=== PATIENT | female | born 1980 | race Caucasian/White ===

== ENCOUNTER 2018-11-17 08:47 | Emergency (ER) | payer OTHER ==
[2018-11-17 08:54] VITALS: BP 155/101; PULSE 108; TEMP 98; BMI 43.0
--- NOTE | 2018-11-17 09:39 | PDOC ---
History of Present Illness - General Chief Complaint: Pain, Acute Stated Complaint: ABDOMINAL PAIN Time Seen by Provider: 11/17/18 09:06 History Source: Patient Exam Limitations: No Limitations - History of Present Illness Initial Comments: 11/17/18 09:35 38 yr old woman with PCOS, IBS, presents with worsening lower abdominal pain for past 2 days, starting yesterday as lower back pain with this morning radiating down to her groin this morning, 10/10, worse with movement. She felt like she had to have a BM this morning and strained to have a nonbloody brown dry BM and gas which made the pain worse. denies vaginal discharge, vomiting, fevers, chills, cough. Past History - Past Medical History Allergies/Adverse Reactions: Allergies Allergy/AdvReac Type Severity Reaction Status Date / Time No Known Allergies Allergy Verified 11/17/18 08:54 Home Medications: Ambulatory Orders Icosapent Ethyl [Vascepa] 1 gm PO ASDIR 11/17/18 Metformin HCl [Glucophage] 1,000 mg PO BID 11/17/18 Naproxen [Naprosyn] 500 mg PO BID #6 tablet 11/17/18 COPD: No Other medical history: PCOS - Surgical History Cholecystectomy: Yes - Suicide/Smoking/Psychosocial Hx Smoking History: Unknown if ever smoked *Physical Exam - Vital Signs Last Vital Signs Temp Pulse Resp BP Pulse Ox 98 F 108 H 26 H 155/101 H 99 11/17/18 08:53 11/17/18 08:53 11/17/18 08:53 11/17/18 08:53 11/17/18 08:53 - Physical Exam General Appearance: Yes: Appropriately Dressed, Moderate Distress HEENT: positive: EOMI, TOMMIE, Pharynx Normal, Hearing Grossly Normal. negative: Pale Conjunctivae, Tonsillar Exudate, Rhinorrhea, Sinus Tenderness, Thrush Neck: positive: Trachea midline, Normal Thyroid, Supple. negative: Decreased range of motion, Lymphadenopathy (R), Lymphadenopathy (L) Respiratory/Chest: positive: Lungs Clear, Normal Breath Sounds. negative: Crackles, Rales, Wheezing Cardiovascular: positive: Regular Rhythm, Tachycardia. negative: Murmur Gastrointestinal/Abdominal: positive: Flat, Soft, Decreased BS, Tenderness ( diffusely tender, marked suprapubically, palpable uterus). negative: Distended , Guarding, Rebound Musculoskeletal: negative: CVA Tenderness Extremity: positive: Normal Inspection. negative: Pedal Edema, Swelling, Calf Tenderness, Erythema Integumentary: positive: Dry, Warm. negative: Petechiae, Rash, Swelling, Ecchymosis, Bruising Neurologic: positive: Alert Moderate Sedation - Procedure Monitoring Vital Signs: Procedure Monitoring Vital Signs Temperature 98 F 11/17/18 08:53 Pulse Rate 108 H 11/17/18 08:53 Respiratory Rate 26 H 11/17/18 08:53 Blood Pressure 155/101 H 11/17/18 08:53 O2 Sat by Pulse Oximetry (%) 99 11/17/18 08:53 ED Treatment Course - LABORATORY CBC & Chemistry Diagram: 11/17/18 09:50 11/17/18 09:50 Medical Decision Making - Medical Decision Making 11/17/18 09:37 38 yr old woman with lower abdominal pain. diffs include ruptured cyst, endometriosis, ectopic , ileus, nephrolithiasis, PID. 11/17/18 10:54 no leucocytosis, anemia, JADA, signs of UTI on u/a mild elevation in ALT, otherwise labs wnl. pending ultrasound results 11/17/18 11:31 pt resting in bed, morphine brought down to the pain to a tolerable level reviewed lab results with pt ectopic ruled out, less likely to be nephrolithiasis given on u/a or bmp findings likely ruptured cyst 11/17/18 13:10 hemorrhagic cyst seen on u/s, toradol given to pt, pt is resting comfortably. will dc pt with ibuprofen and outpatient f/u, and return instructions reviewed imaging and labs. copy of u/s reported provided. pt in agreement with plan to f/u as outpatient, stated understanding of return instructions. rx'd e-rx'd to preferred pharmacy *DC/Admit/Observation/Transfer Diagnosis at time of Disposition: Hemorrhagic cyst of left ovary - Discharge Dispostion Disposition: HOME Decision to Admit order: No - Prescriptions Prescriptions: Naproxen [Naprosyn] 500 mg PO BID #6 tablet - Referrals Referrals: Vamsi Jiménez MD [Staff Physician] - - Patient Instructions Printed Discharge Instructions: DI for Ovarian Cyst Additional Instructions: You were evaluated for pain today. A copy of your ultrasound has been provided for you. Please follow-up with your primary care physician an engine generator assembler for post- hospital evaluation. You can use heat, such as a warm water bottle, a heating pad set on low, or a warm bath, to relax tense muscles and relieve cramping you can also use NSAIDs, such as ibuprofen, help decrease swelling, pain, and fever. This medicine is available with or without a doctor's order. NSAIDs can cause stomach bleeding or kidney problems in certain people. Always read the medicine label and follow directions. Take it with food and drink plenty of water. Get emergency medical help if you have signs of an allergic reaction: sneezing, runny or stuffy nose; wheezing or trouble breathing; hives; swelling of your face, lips, tongue, or throat. Please seek immediate medical care if you have severe vaginal bleeding, dizziness or light-headed, or you feel like you may faint, develop new or worse pain in your belly or pelvis or any new symptoms. - Post Discharge Activity Forms/Work/School Notes: Back to Work
[2018-11-17] MEDS ORDERED: morphine CARPU-JECT 2 MG/1 ML DISP.SYRIN IVPUSH ONE (09:42)
[2018-11-17 10:03] LABS: BASO % 0.7 % (0-2.0); EOS % 1.6 % (0-4.5); HEMATOCRIT 37.3 % (32.4-45.2); HEMOGLOBIN 13.1 GM/dL (10.7-15.3); LYMPH % 27.5 % (8-40); MCH 29.8 pg (25.7-33.7); MEAN CELL VOLUME 85.1 fl (80-96); MEAN PLT VOLUME 7.7 fl (7.5-11.1); MONO % 4.8 % (3.8-10.2); NEUT % 65.4 % (42.8-82.8); PLATELET COUNT 267 K/MM3 (134-434); RBC 4.39 M/mm3 (3.60-5.2); RDW 13.8 % (11.6-15.6); WHITE BLOOD COUNT 7.2 K/mm3 (4.0-10.0)
[2018-11-17] MEDS ORDERED: MORPHINE SULFATE 2 MG/ML VIAL ONE (10:10)
[2018-11-17 10:11] LABS: URINE APPEARANCE SLCLOUDY; URINE BILIRUBIN NEGATIVE (<2.0 mg/dL); URINE COLOR YELLOW; URINE GLUCOSE (UA) NEGATIVE (NEGATIVE); URINE KETONE NEGATIVE (NEGATIVE); URINE LEUK ESTERASE NEGATIVE (NEGATIVE); URINE NITRITE NEGATIVE (NEGATIVE); URINE PROTEIN 1+ (NEGATIVE); URINE UROBILINOGEN NEGATIVE mg/dL (0.2-1.0)
[2018-11-17 10:37] LABS: ALK PHOS 66 U/L (45-117); ANION GAP 9 MMOL/L (8-16); BILIRUBIN,TOTAL 0.4 mg/dL (0.2-1); BLOOD UREA NITROGEN 9 mg/dL (7-18); CHLORIDE 101 mmol/L (98-107); CO2 24 mmol/L (21-32); CREATININE 0.8 mg/dL (0.55-1.3); GLUCOSE,RANDOM 106 mg/dL (74-106); POTASSIUM 4.1 mmol/L (3.5-5.1); SGOT/AST 35 U/L (15-37); SGPT/ALT 65 U/L (13-61); SODIUM 134 mmol/L (136-145); TOT PROT 7.9 g/dl (6.4-8.2)
[2018-11-17 10:54] LABS: EPI CELLS RARE /HPF (FEW); URINE BACTERIA RARE /hpf (NONE SEEN); URINE MUCUS RARE
[2018-11-17] MEDS ORDERED: KETOROLAC TROMETHAMINE 30 MG/1 ML VIAL IVPUSH ONE (12:26)
[2018-11-17] MEDS ORDERED: KETOROLAC TROMETHAMINE 30 MG/1 ML VIAL ONE (12:39)
== END 2018-11-17 13:50 | disposition home or self-care (01) ==
LOC: JER 08:47
PROC: 3E033NZ Introduction of Analgesics, Hypnotics, Sedatives into Peripheral Vein, Percutaneous Approach (ICD-10-PCS; principal; 2018-11-17)
PROC: 3E0333Z Introduction of Anti-inflammatory into Peripheral Vein, Percutaneous Approach (ICD-10-PCS; 2018-11-17)
DX: N83.202 Unspecified ovarian cyst, left side (principal)
CPT/HCPCS: 36415; 76830-TC; 80053; 81003; 81015; 84702; 85025; 99281-25

== ENCOUNTER 2020-03-23 22:04 | Inpatient (IN) | payer OTHER ==
[2020-03-23] MEDS ORDERED: morphine SULFATE 4 MG/ML VIAL ONE (22:26)
[2020-03-23] MEDS ORDERED: morphine CARPU-JECT 4 MG/1 ML DISP.SYRIN IVPUSH ONE (22:34)
[2020-03-23] MEDS ORDERED: ONDANSETRON 4 MG/2 ML VIAL IVPUSH ONE (22:34)
[2020-03-23] MEDS ORDERED: SODIUM CHLORIDE 0.9% 500 ML INFUS.BAG IV ONE (22:34)
[2020-03-23] MEDS ORDERED: KETOROLAC TROMETHAMINE 30 MG/1 ML VIAL ONE (22:38)
[2020-03-23] MEDS ORDERED: KETOROLAC TROMETHAMINE 30 MG/1 ML VIAL IVPUSH ONE (22:43)
[2020-03-23 22:56] LABS: BASO % 0.5 % (0-2.0); EOS % 1.1 % (0-4.5); HEMATOCRIT 37.2 % (32.4-45.2); HEMOGLOBIN 12.5 GM/dL (10.7-15.3); LYMPH % 45.5 % (8-40); MCHC 33.5 g/dl (32.0-36.0); MEAN CELL VOLUME 86.4 fl (80-96); MEAN PLT VOLUME 8.2 fl (7.5-11.1); MONO % 5.9 % (3.8-10.2); PLATELET COUNT 355 K/MM3 (134-434); RBC 4.31 M/mm3 (3.60-5.2); RDW 14.6 % (11.6-15.6); WHITE BLOOD COUNT 9.1 K/mm3 (4.0-10.0)
[2020-03-23 22:58] LABS: INR 0.88 (0.83-1.09); PROTHROMBIN TIME (PATIENT) 10.4 SEC (9.7-13.0)
[2020-03-23 23:00] LABS: ACTIVATED PTT 29.3 SECONDS (25.2-36.5)
--- NOTE | 2020-03-23 23:00 | PDOC ---
History of Present Illness - General Chief Complaint: Pain, Acute Stated Complaint: L/LOWER QUADRANT PAIN Time Seen by Provider: 03/23/20 22:17 History Source: Patient, Family Exam Limitations: No Limitations - History of Present Illness Initial Comments: 03/23/20 22:44 Nara Doherty is a 39F with PMH PCOS c/b hemorrhagic cyst presenting with severe LLQ pain. 20 mins [employer] was having a BM, normal stool without issues, suddenly had acute onset 10/10 LLQ abd pain. Patient has known history of ovarian cysts 2/2 PCOS, has had cyst rupture in the past but says current pain is unlike this. Sees Dax BOWEN. Never had kidney stone in the past, no urinary problems, passing urine without issues. Associated nausea without vomiting, denies F/C, constipation/diarrhea, vaginal bleeding or discharge. Eating/drinking without issues. Complains of extreme L-sided flank pain without groin radiation. LMP February 27, but sporadic 2/2 PCOS. No OCP. NKDA PSH cholecystectomy Past History - Medical History Allergies/Adverse Reactions: Allergies Allergy/AdvReac Type Severity Reaction Status Date / Time No Known Allergies Allergy Verified 11/17/18 08:54 Home Medications: Ambulatory Orders Icosapent Ethyl [Vascepa] 1 gm PO ASDIR 11/17/18 Metformin HCl [Glucophage] 1,000 mg PO BID 11/17/18 Naproxen [Naprosyn] 500 mg PO BID #6 tablet 11/17/18 Ibuprofen [Motrin -] 600 mg PO TID #21 tablet 03/23/20 COPD: No Other medical history: PCOS - Surgical History Cholecystectomy: Yes - Immunization History Immunization Up to Date: No - Psycho-Social/Smoking History Smoking History: Unknown if ever smoked - Substance Abuse Hx (Audit-C & DAST Scrn) How often the patient has a drink containing alcohol: Never Score: In Men: 4 or > Positive; In Women: 3 or > Positive: 0 Screen Result (Pos requires Nsg. Audit-10AR): Negative In the last yr the pt used illegal drug/Rx for NonMed reason: No Score: Yes response is considered Positive: 0 Screen Result (Positive result requires Nsg. DAST-10): Negative Review of Systems - Review of Systems Able to Perform ROS?: Yes Constitutional: No: Symptoms Reported HEENTM: No: Symptoms Reported Respiratory: No: Symptoms reported Cardiac (ROS): No: Symptoms Reported ABD/GI: Yes: Nausea. No: Constipated, Diarrhea, Poor Appetite, Poor Fluid Intake, Vomiting : No: Burning, Dysuria, Discharge, Frequency, Flank Pain, Hematuria Musculoskeletal: No: Symptoms Reported Integumentary: No: Symptoms Reported Neurological: No: Symptoms reported Endocrine: No: Symptoms Reported Hematologic/Lymphatic: No: Symptoms Reported All Other Systems: Reviewed and Negative *Physical Exam - Vital Signs Last Vital Signs Temp Pulse Resp BP Pulse Ox 97.8 F 98 H 19 173/109 H 99 03/23/20 22:06 03/23/20 22:06 03/23/20 22:06 03/23/20 22:06 03/23/20 22:06 - Physical Exam General Appearance: Yes: Nourished, Appropriately Dressed, Severe Distress, Obese HEENT: positive: EOMI, TOMMIE, Normal ENT Inspection, Normal Voice, Symmetrical, Pharynx Normal. negative: Scleral Icterus (R), Scleral Icterus (L), Pharyngeal Erythema, Tonsillar Exudate, Tonsillar Erythema Neck: positive: Trachea midline, Normal Thyroid, Supple. negative: Tender, Rigid, Lymphadenopathy (R), Lymphadenopathy (L), Tender lateral, Tender midline Respiratory/Chest: positive: Lungs Clear, Normal Breath Sounds. negative: Chest Tender, Respiratory Distress, Accessory Muscle Use, Crackles, Rales, Rhonchi, Stridor, Wheezing Cardiovascular: positive: Regular Rhythm, Tachycardia Gastrointestinal/Abdominal: positive: Normal Bowel Sounds, Tender (L flank, not quite CVA, lower down), Flat, Soft. negative: Organomegaly, Guarding, Rebound, Hernia Musculoskeletal: positive: Normal Inspection. negative: CVA Tenderness, CVA Tenderness (R), CVA Tenderness (L), Decreased Range of Motion Extremity: positive: Normal Capillary Refill, Normal Inspection, Normal Range of Motion, Pelvis Stable. negative: Tender, Pedal Edema, Swelling, Calf Tenderness Integumentary: positive: Normal Color, Dry, Warm Neurologic: positive: Fully Oriented, Alert, Normal Mood/Affect, Normal Response ED Treatment Course - LABORATORY CBC & Chemistry Diagram: 03/24/20 06:00 03/24/20 06:00 Medical Decision Making - Medical Decision Making 03/23/20 23:25 Patient presents with sudden onset LLQ abdominal pain unrelated to trauma or prior illness, PMH ovarian cysts but says pain unlike this, concerned for ovarian torsion/cyst rupture vs. more likely renal stone. Getting CBC/CMP/lipase/serum preg/T&S/Coags to evaluate plus in prep for possible surgery. Getting spiral CT after test. Given 1L NS, 4mg morphine, and 30mg Toradol for pain, felt better 10 minutes later with almost complete resolution of sx. 03/23/20 23:39 Labs notable for: - CBC WNL - CMP WNL - lipase WNL - serum preg negative CT shows 3.3 x 4.6 obstructing stone with mild hydro, fatty liver. 03/24/20 00:[address] Alex Fisher, close to weekend, recommends pain control, NPO, admit, will see tomorrow. 03/24/20 01:03 UA notable for: 3+ blood, 3+ protein, consistent with renal stone 03/24/20 03:20 Discussed case with KASIA Ramírez, any for admit for AM urology evaluation to Med Surg under Dr. Obregon. Ordered CXR for admission. ECG shows NSR with HR 81, QTc 455, no JULIETA/D, nonspecific TWI V2 Discharge - Discharge Information Problems reviewed: Yes Clinical Impression/Diagnosis: Kidney stone on left side Abdominal pain Qualifiers: Abdominal location: left lower quadrant Qualified Code(s): R10.32 - Left lower quadrant pain Hydronephrosis Qualifiers: Hydronephrosis type: with ureteral calculous obstruction Qualified Code(s): N13.2 - Hydronephrosis with renal and ureteral calculous obstruction Condition: Good - Admission Yes - Additional Discharge Information - Follow up/Referral - Patient Discharge Instructions - Post Discharge Activity
--- NOTE | 2020-03-23 23:06 | PDOC ---
Documentation entered by Nan Rivera SCRIBE, acting as scribe for Aura Acuña DO. Aura Acuña DO: This documentation has been prepared by the jose raulibe, Nan Rivera SCRIBE, under my direction and personally reviewed by me in its entirety. I confirm that the documentation accurately reflects all work, treatment, procedures, and medical decision making performed by me. Attending Attestation - Resident Resident Name: Kuldip Sutton - ED Attending Attestation I have performed the following: I have examined & evaluated the patient, The case was reviewed & discussed with the resident, I agree w/resident's findings & plan, Exceptions are as noted - HPI HPI: 03/23/20 22:31 Patient is a 39 year old female with a significant past medical history of PCOS and IBS, who presents to the ED with acute left flank pain since approximately 20 minutes before arrival. Patient stated that she started experiencing the pain after she had a bowel movement along with nausea. Patient said she has never experienced pain like this before. Patient denies: fever, chills, vomiting, diarrhea, urinary issues, or any vaginal complaints. Allergies: NKDA - Physicial Exam PE: 03/23/20 22:55 GENERAL: +Acutely uncomfortable. Awake, alert, and fully oriented. HEAD: No signs of trauma NECK: Normal ROM, supple, no lymphadenopathy, JVD, or masses LUNGS: Breath sounds equal, clear to auscultation bilaterally. No wheezes, and no crackles HEART: Regular rate and rhythm, normal S1 and S2, no murmurs, rubs or gallops ABDOMEN: +Left flank tenderness (mid abdomen). +Morbidly obese. Soft. normoactive bowel sounds. No guarding, no rebound. EXTREMITIES: Normal range of motion, no edema. No clubbing or cyanosis. No cords, erythema, or tenderness NEUROLOGICAL: Cranial nerves II through XII grossly intact. Normal speech. SKIN: Warm, Dry, normal turgor, no rashes or lesions noted. - Medical Decision Making 03/23/20 23:03 a/p: 39yo female with hx of pcos with acute onset of L flank pain -pt with hx of hemorrhagic cysts, but this pain is different -pt with colicky pain and unable to get comfortable in the bed -pt with nausea assoc -suspect renal colic -morphine given for pain control, pt moaning, unable to get comfortable -labs sent -ct spiral stone study ordered -will monitor and reassess 03/23/20 23:07 preg neg no elevated wbc hgb stable 03/23/20 23:08 pt feeling much better after toradol 03/24/20 00:[address] mild hydro pending urine pain free currently resident discussed with Dr. Fisher, urology, given proximal stone and hydro will remove stone in AM, admit pt, npo Heart Score/ECG Review - ECG Intrepretation Comment:: 03/23/20 23:07 sinus at 81, nl axis, nl interval, nonspecific t wave inversions v2, will monitor and reassess Discharge - Discharge Information Problems reviewed: Yes Clinical Impression/Diagnosis: Kidney stone on left side, Hydronephrosis Abdominal pain Qualifiers: Abdominal location: left lower quadrant Qualified Code(s): R10.32 - Left lower quadrant pain Condition: Improved - Admission Yes - Additional Discharge Information Prescriptions: Ibuprofen [Motrin -] 600 mg PO TID #21 tablet - Follow up/Referral Referrals: Alex Fisher MD [Staff Physician] - - Patient Discharge Instructions Patient Printed Discharge Instructions: DI for Kidney Stones Additional Instructions: Today you were evaluated for abdominal pain. Your CT scan shows you have a 3mm kidney stone, which will pass on its own. We are sending you home with pain medications to help you pass the stone on your home. Please drink a lot of water and take the medications as needed, and your stone will pass on its own in the next few days. A referral to a urologist has been given, please see them if you pain does not improve in the next few days. If your pain gets worse or gets worse, or you experience fever, nausea, vomiting, or any other new or concerning symptoms, please return to the emergency room. - Post Discharge Activity Work/Back to School Note: Back to Work
[2020-03-23 23:07] LABS: ALBUMIN 4.1 g/dl (3.4-5.0); BILIRUBIN,TOTAL 0.3 mg/dL (0.2-1); BLOOD UREA NITROGEN 14.8 mg/dL (7-18); CREATININE 0.9 mg/dL (0.55-1.3); POTASSIUM 3.7 mmol/L (3.5-5.1)
[2020-03-24 00:57] LABS: EPI CELLS 10 /uL (0-25.1); HYALINE CASTS 2 /uL (0-3.1); URINE APPEARANCE CLOUDY; URINE BACTERIA 445 /uL (0-1359); URINE BILIRUBIN NEGATIVE (NEGATIVE); URINE COLOR YELLOW; URINE GLUCOSE (UA) NEGATIVE (NEGATIVE); URINE KETONE TRACE (NEGATIVE); URINE LEUK ESTERASE NEGATIVE (NEGATIVE); URINE NITRITE NEGATIVE (NEGATIVE); URINE PROTEIN 3+ (NEGATIVE); URINE RBC 407 /uL (0-23.9); URINE UROBILINOGEN 0.2 mg/dL (0.2-1.0); URINE WBC 17 /uL (0-25.8)
[2020-03-24] MEDS ORDERED: ACETAMINOPHEN 1000 MG/100 ML VIAL (NON FORMULARY) IVPB PRN (01:03)
[2020-03-24] MEDS ORDERED: ACETAMINOPHEN INJECTION 100 ML IVPB ONE ×2 (01:18→06:13)
[2020-03-24] MEDS ORDERED: morphine SULFATE 4 MG/ML VIAL ONE (03:21)
[2020-03-24] MEDS ORDERED: ONDANSETRON 4 MG/2 ML VIAL IVPUSH PRN ×3 (03:24→20:19)
[2020-03-24] MEDS ORDERED: DEXTROSE 5%-0.45% SALINE 1,000 ML IV SCH (03:30)
[2020-03-24] MEDS ORDERED: morphine CARPU-JECT 4 MG/1 ML DISP.SYRIN IVPUSH ONE (03:38)
--- NOTE | 2020-03-24 03:54 | HP ---
CHIEF COMPLAINT: Abdominal Pain PCP: Not on staff ([facility]) HISTORY OF PRESENT ILLNESS: 39 y/o female with a PMHx of PCOS. Who presents to the ED with sudden severe LLQ pain and nausea. Patient reports that the pain began, while having a BM. Patient denies flank pain or dysuria. She denies fever, chills, SOB, dizziness, LOPEZ, CP, palpitations, vomiting, diarrhea, constipation, melena, hematochezia ER course was notable for: (1) CTAP- 3.3mm x 4.6mm obstructing stone to the proximal third of the left ureter, mild- moderate left hydronephrosis/hydroureter (2) UA- +3 protein, trace ketones, +3 blood, 17 WBC, 445 Bacteria (3) Recent Travel: None PAST MEDICAL HISTORY: PCOS PAST SURGICAL HISTORY: Cholecystectomy Social History: Smoking: Never Alcohol: Denies Drugs: Denies Lives with family Allergies No Known Allergies Allergy (Verified 11/17/18 08:54) HOME MEDICATIONS: Home Medications Medication Instructions Recorded Icosapent Ethyl [Vascepa] 1 gm PO ASDIR 11/17/18 Metformin HCl [Glucophage] 1,000 mg PO BID 11/17/18 Naproxen [Naprosyn] 500 mg PO BID #6 tablet 11/17/18 Ibuprofen [Motrin -] 600 mg PO TID #21 tablet 03/23/20 REVIEW OF SYSTEMS CONSTITUTIONAL: Absent: fever, chills, diaphoresis, generalized weakness, malaise, loss of appetite, weight change HEENT: Absent: rhinorrhea, nasal congestion, throat pain, throat swelling, difficulty swallowing, mouth swelling, ear pain, eye pain, visual changes CARDIOVASCULAR: Absent: chest pain, syncope, palpitations, irregular heart rate, lig htheadedness, peripheral edema RESPIRATORY: Absent: cough, shortness of breath, dyspnea with exertion, orthopnea, wheezing, stridor, hemoptysis GASTROINTESTINAL: abdominal pain, nausea Absent: abdominal distension, vomiting, diarrhea, constipation, melena, hematochezia GENITOURINARY: Absent: dysuria, frequency, urgency, hesitancy, hematuria, flank pain, genital pain MUSCULOSKELETAL: Absent: myalgia, arthralgia, joint swelling, back pain, neck pain SKIN: Absent: rash, itching, pallor HEMATOLOGIC/IMMUNOLOGIC: Absent: easy bleeding, easy bruising, lymphadenopathy, frequent infections ENDOCRINE: Absent: unexplained weight gain, unexplained weight loss, heat intolerance, cold intolerance NEUROLOGIC: Absent: headache, focal weakness or paresthesias, dizziness, unsteady gait, seizure, mental status changes, bladder or bowel incontinence PSYCHIATRIC: Absent: anxiety, depression, suicidal or homicidal ideation, hallucinations. PHYSICAL EXAMINATION Vital Signs - 24 hr 03/23/20 03/24/20 22:06 00:56 Temperature 97.8 F Pulse Rate 98 H Pulse Rate [ 99 H Right Radial] Respiratory 19 18 Rate Blood Pressure 173/109 H Blood Pressure 159/100 [Left Arm] O2 Sat by Pulse 99 98 Oximetry (%) GENERAL: Mild distress, grimacing Awake, alert, and fully oriented. HEAD: Normal with no signs of trauma. EYES: Pupils equal, round and reactive to light, extraocular movements intact, sclera anicteric, conjunctiva clear. No lid lag. EARS, NOSE, THROAT: Ears normal, nares patent, oropharynx clear without exudates. Moist mucous membranes. NECK: Normal range of motion, supple without lymphadenopathy, JVD, or masses. LUNGS: Breath sounds equal, clear to auscultation bilaterally. No wheezes, and no crackles. No accessory muscle use. HEART: Regular rate and rhythm, normal S1 and S2 without murmur, rub or gallop. ABDOMEN: Obese, tenderness to LLQ, LMQ. soft, not distended, normoactive bowel sounds, no guarding, no rebound, no masses. No hepatomegaly or splenomegaly. MUSCULOSKELETAL: Normal range of motion at all joints. No bony deformities or tenderness. No Right CVA tenderness. +Left CVA tenderness. UPPER EXTREMITIES: 2+ pulses, warm, well-perfused. No cyanosis. No clubbing. No peripheral edema. LOWER EXTREMITIES: 2+ pulses, warm, well-perfused. No calf tenderness. No peripheral edema. NEUROLOGICAL: Cranial nerves II-XII intact. Normal speech. Gait not observed. PSYCHIATRIC: Cooperative. Good eye contact. Appropriate mood and affect. SKIN: Warm, dry, normal turgor, no rashes or lesions noted, normal capillary refill. Laboratory Results - last 24 hr 03/23/20 03/23/20 03/23/20 22:28 22:28 22:28 WBC RBC Hgb Hct MCV MCH MCHC RDW Plt Count MPV Absolute Neuts (auto) Neutrophils % Lymphocytes % Monocytes % Eosinophils % Basophils % Nucleated RBC % PT with INR 10.40 INR 0.88 PTT (Actin FS) 29.3 Sodium 139 Potassium 3.7 Chloride 105 Carbon Dioxide 23 Anion Gap 11 BUN 14.8 Creatinine 0.9 Est GFR (CKD-EPI)AfAm 92.70 Est GFR (CKD-EPI)NonAf 79.98 Random Glucose 148 H Calcium 10.0 Total Bilirubin 0.3 AST 22 ALT 50 Alkaline Phosphatase 71 Total Protein 8.0 Albumin 4.1 Lipase 147 Serum , Qual Negative Urine Color Urine Appearance Urine pH Ur Specific [place] Urine Protein Urine Glucose (UA) Urine Ketones Urine Blood Urine Nitrite Urine Bilirubin Urine Urobilinogen Ur Leukocyte Esterase Urine WBC (Auto) Urine RBC (Auto) Urine Casts (Auto) U Epithel Cells (Auto) Urine Bacteria (Auto) Blood Type Antibody Screen 03/23/20 03/23/20 03/24/20 22:28 22:28 00:46 WBC 9.1 RBC 4.31 Hgb 12.5 Hct 37.2 MCV 86.4 MCH 29.0 MCHC 33.5 RDW 14.6 Plt Count 355 D MPV 8.2 Absolute Neuts (auto) 4.3 Neutrophils % 47.0 D Lymphocytes % 45.5 H D Monocytes % 5.9 Eosinophils % 1.1 Basophils % 0.5 Nucleated RBC % 0 PT with INR INR PTT (Actin FS) Sodium Potassium Chloride Carbon Dioxide Anion Gap BUN Creatinine Est GFR (CKD-EPI)AfAm Est GFR (CKD-EPI)NonAf Random Glucose Calcium Total Bilirubin AST ALT Alkaline Phosphatase Total Protein Albumin Lipase Serum , Qual Urine Color Yellow Urine Appearance Cloudy Urine pH 5.0 Ur Specific [place] 1.033 Urine Protein 3+ H Urine Glucose (UA) Negative Urine Ketones Trace H Urine Blood 3+ H Urine Nitrite Negative Urine Bilirubin Negative Urine Urobilinogen 0.2 Ur Leukocyte Esterase Negative Urine WBC (Auto) 17 Urine RBC (Auto) 407 Urine Casts (Auto) 2 U Epithel Cells (Auto) 10 Urine Bacteria (Auto) 445 Blood Type O POSITIVE Antibody Screen Negative ASSESSMENT/PLAN: 39 y/o female with a PMHx of PCOS. Admitted to M/S for Hydronephrosis with O bstructive Uropathy, Nephrolithiasis, Intractable Abdominal Pain for further evaluation of their emergent condition. Plan: See Problem List FEN D50.45%NS@83ml/hr Replete lytes prn NPO DVT ppx OOB SCDs Hold AC- OR today Dispo: Requires Inpatient Care Family Medical History Family History: Unremarkable Problem List - Problem (1) Hydronephrosis with obstructing calculus Assessment/Plan: hx PCOS Appreciate Urology consult- per ED resident, made aware- OR today for stent placement CTAP- showed obstructing stones in L- ureter with hydroneprosis Continue IVF Morphine Sulfate, Ofirmev prn NPO Monitor CBC, CMP Monitor vitals Code(s): N13.2 - HYDRONEPHROSIS WITH RENAL AND URETERAL CALCULOUS OBSTRUCTION (2) Abdominal pain Assessment/Plan: See above Code(s): R10.9 - UNSPECIFIED ABDOMINAL PAIN Qualifiers: Abdominal location: left lower quadrant Qualified Code(s): R10.32 - Left lower quadrant pain Visit type - Emergency Visit Emergency Visit: Yes ED Registration Date: 03/24/20 Care time: The patient presented to the Emergency Department on the above date and was hospitalized for further evaluation of their emergent condition. - New Patient This patient is new to me today: Yes Date on this admission: 03/24/20 - Critical Care Critical Care patient: No
[2020-03-24] MEDS ORDERED: MORPHINE SULFATE 2 MG/ML VIAL IVPUSH PRN (05:00)
[2020-03-24] MEDS ORDERED: ACETAMINOPHEN 1000 MG/100 ML VIAL (NON FORMULARY) IVPB ONE (06:04)
[2020-03-24 06:50] LABS: BASO % 0.5 % (0-2.0); EOS % 0.9 % (0-4.5); HEMATOCRIT 35.4 % (32.4-45.2); HEMOGLOBIN 11.8 GM/dL (10.7-15.3); MCH 28.6 pg (25.7-33.7); MCHC 33.2 g/dl (32.0-36.0); MEAN CELL VOLUME 86.1 fl (80-96); MEAN PLT VOLUME 7.9 fl (7.5-11.1); MONO % 4.8 % (3.8-10.2); NEUT % 67.8 % (42.8-82.8); PLATELET COUNT 307 K/MM3 (134-434); RBC 4.12 M/mm3 (3.60-5.2); RDW 14.8 % (11.6-15.6); WHITE BLOOD COUNT 8.8 K/mm3 (4.0-10.0)
[2020-03-24 07:21] LABS: ALBUMIN 3.7 g/dl (3.4-5.0); BILIRUBIN,TOTAL 0.3 mg/dL (0.2-1); BLOOD UREA NITROGEN 18.7 mg/dL (7-18); CALCIUM 8.9 mg/dL (8.5-10.1); CREATININE 1.1 mg/dL (0.55-1.3); POTASSIUM 3.7 mmol/L (3.5-5.1); TOT PROT 7.2 g/dl (6.4-8.2)
[2020-03-24] MEDS ORDERED: MORPHINE SULFATE 2 MG/ML VIAL ONE ×2 (08:01→11:27)
--- NOTE | 2020-03-24 09:44 | CONSULT ---
Consult Consult Specialty:: UROLOGY Reason for Consultation:: Left Hydronehrosis - History of Present Illness Chief Complaint: 39 Y/O Female patient with history of left flank pain over 2 days, scale 8/10 on/off. mild dysuria no gross hematuria or frequency. she has family history of kidney stones. O/E soft lax abd with tender Left CVA. no palpable bladder. CT-Scan showed Left proximal ureteric 5mm stone with hydronephrosis. WBC 8.8 hb 11.8. BUN 18.7 S.Creat 1.1 - Past Medical History ...: No - Smoking History Smoking history: Unknown if ever smoked Home Medications - Allergies Allergies/Adverse Reactions: Allergies Allergy/AdvReac Type Severity Reaction Status Date / Time No Known Allergies Allergy Verified 11/17/18 08:54 - Home Medications Home Medications: Ambulatory Orders Icosapent Ethyl [Vascepa] 1 gm PO ASDIR 11/17/18 Metformin HCl [Glucophage] 1,000 mg PO BID 11/17/18 Naproxen [Naprosyn] 500 mg PO BID #6 tablet 11/17/18 Ibuprofen [Motrin -] 600 mg PO TID #21 tablet 03/23/20 Physical Exam Vital Signs: Vital Signs Temperature 98.5 F 03/24/20 06:00 Pulse Rate 85 03/24/20 06:00 Respiratory Rate 17 03/24/20 06:00 Blood Pressure 156/103 H 03/24/20 06:00 O2 Sat by Pulse Oximetry (%) 98 03/24/20 06:00 Labs: CBC, BMP 03/24/20 06:00 03/24/20 06:00 Assessment/Plan Left hydronephrosis - 5 mm proximal stone. Plan: NPO For Left laser and jj stent insertion today.
[2020-03-24] MEDS: INSULIN SLIDING SCALE (NOVOLOG) 1 VIAL SQ SCH ×3 (10:07→22:17)
--- NOTE | 2020-03-24 13:38 | EKG ---
Test Reason : Blood Pressure : / mmHG Vent. Rate : 081 BPM Atrial Rate : 081 BPM P-R Int : 194 ms QRS Dur : 090 ms QT Int : 392 ms P-R-T Axes : 056 073 063 degrees QTc Int : 455 ms NORMAL SINUS RHYTHM CANNOT RULE OUT ANTERIOR INFARCT , AGE UNDETERMINED ABNORMAL ECG NO PREVIOUS ECGS AVAILABLE Confirmed by ADDI MARIE MD ([id number]) on 03/24/2020 1:37:50 PM Referred By: Confirmed By:ADDI MARIE MD
[2020-03-24] MEDS ORDERED: KETOROLAC TROMETHAMINE 30 MG/1 ML VIAL IM PRN (13:43)
--- NOTE | 2020-03-24 14:47 | PN ---
Physical Exam: SUBJECTIVE: Patient seen and examined Patient was seen in holding. Reports feeling better now that she received ketoralac. Will be brought to the OR by Dr. Trejo OBJECTIVE: Vital Signs Period Temp Pulse Resp BP Sys/Vanessa Pulse Ox Last 24 Hr 97.8 F-98.8 F 85-99 17-19 153-173/93-109 97-100 GENERAL: The patient is awake, alert, and fully oriented, in no acute distress. HEAD: Normal with no signs of trauma. EYES: PERRL, extraocular movements intact, sclera anicteric, conjunctiva clear. No ptosis. ENT: Ears normal, nares patent, oropharynx clear without exudates, moist mucous membranes. NECK: Trachea midline, full range of motion, supple. LUNGS: Breath sounds equal, clear to auscultation bilaterally, no wheezes, no crackles, no accessory muscle use. HEART: Regular rate and rhythm, S1, S2 without murmur, rub or gallop. ABDOMEN: Soft, nontender, nondistended, normoactive bowel sounds, no guarding, no rebound, no hepatosplenomegaly, no masses. EXTREMITIES: 2+ pulses, warm, well-perfused, no edema. NEUROLOGICAL: Cranial nerves II through XII grossly intact. Normal speech, gait not observed. PSYCH: Normal mood, normal affect. SKIN: Warm, dry, normal turgor, no rashes or lesions noted Laboratory Results - last 24 hr 03/23/20 03/23/20 03/23/20 22:28 22:28 22:28 WBC RBC Hgb Hct MCV MCH MCHC RDW Plt Count MPV Absolute Neuts (auto) Neutrophils % Lymphocytes % Monocytes % Eosinophils % Basophils % Nucleated RBC % PT with INR 10.40 INR 0.88 PTT (Actin FS) 29.3 Sodium 139 Potassium 3.7 Chloride 105 Carbon Dioxide 23 Anion Gap 11 BUN 14.8 Creatinine 0.9 Est GFR (CKD-EPI)AfAm 92.70 Est GFR (CKD-EPI)NonAf 79.98 POC Glucometer Random Glucose 148 H Calcium 10.0 Total Bilirubin 0.3 AST 22 ALT 50 Alkaline Phosphatase 71 Total Protein 8.0 Albumin 4.1 Lipase 147 Serum , Qual Negative Urine Color Urine Appearance Urine pH Ur Specific [place] Urine Protein Urine Glucose (UA) Urine Ketones Urine Blood Urine Nitrite Urine Bilirubin Urine Urobilinogen Ur Leukocyte Esterase Urine WBC (Auto) Urine RBC (Auto) Urine Casts (Auto) U Epithel Cells (Auto) Urine Bacteria (Auto) Blood Type Antibody Screen 03/23/20 03/23/20 03/24/20 22:28 22:28 00:46 WBC 9.1 RBC 4.31 Hgb 12.5 Hct 37.2 MCV 86.4 MCH 29.0 MCHC 33.5 RDW 14.6 Plt Count 355 D MPV 8.2 Absolute Neuts (auto) 4.3 Neutrophils % 47.0 D Lymphocytes % 45.5 H D Monocytes % 5.9 Eosinophils % 1.1 Basophils % 0.5 Nucleated RBC % 0 PT with INR INR PTT (Actin FS) Sodium Potassium Chloride Carbon Dioxide Anion Gap BUN Creatinine Est GFR (CKD-EPI)AfAm Est GFR (CKD-EPI)NonAf POC Glucometer Random Glucose Calcium Total Bilirubin AST ALT Alkaline Phosphatase Total Protein Albumin Lipase Serum , Qual Urine Color Yellow Urine Appearance Cloudy Urine pH 5.0 Ur Specific [place] 1.033 Urine Protein 3+ H Urine Glucose (UA) Negative Urine Ketones Trace H Urine Blood 3+ H Urine Nitrite Negative Urine Bilirubin Negative Urine Urobilinogen 0.2 Ur Leukocyte Esterase Negative Urine WBC (Auto) 17 Urine RBC (Auto) 407 Urine Casts (Auto) 2 U Epithel Cells (Auto) 10 Urine Bacteria (Auto) 445 Blood Type O POSITIVE Antibody Screen Negative 03/24/20 03/24/20 03/24/20 06:00 06:00 10:05 WBC 8.8 RBC 4.12 Hgb 11.8 Hct 35.4 MCV 86.1 MCH 28.6 MCHC 33.2 RDW 14.8 Plt Count 307 MPV 7.9 Absolute Neuts (auto) 5.9 Neutrophils % 67.8 D Lymphocytes % 26.0 D Monocytes % 4.8 Eosinophils % 0.9 Basophils % 0.5 Nucleated RBC % 0 PT with INR INR PTT (Actin FS) Sodium 138 Potassium 3.7 Chloride 106 Carbon Dioxide 24 Anion Gap 8 BUN 18.7 H Creatinine 1.1 Est GFR (CKD-EPI)AfAm 72.73 Est GFR (CKD-EPI)NonAf 62.75 POC Glucometer 122 Random Glucose 170 H Calcium 8.9 Total Bilirubin 0.3 AST 23 ALT 44 Alkaline Phosphatase 61 Total Protein 7.2 Albumin 3.7 Lipase Serum , Qual Urine Color Urine Appearance Urine pH Ur Specific [place] Urine Protein Urine Glucose (UA) Urine Ketones Urine Blood Urine Nitrite Urine Bilirubin Urine Urobilinogen Ur Leukocyte Esterase Urine WBC (Auto) Urine RBC (Auto) Urine Casts (Auto) U Epithel Cells (Auto) Urine Bacteria (Auto) Blood Type Antibody Screen Active Medications Generic Name Dose Route Start Last Admin Trade Name Freq PRN Reason Stop Dose Admin Dextrose/Sodium Chloride 1,000 mls @ 83 mls/hr 03/24/20 03:30 03/24/20 03:34 D5-1/2ns - IV 83 mls/hr ASDIR VARGAS Administration Insulin Aspart 1 vial 03/24/20 11:00 03/24/20 10:07 Novolog Vial Sliding Scale - SQ Not Given ACHS VARGAS Protocol Ketorolac Tromethamine 30 mg 03/24/20 13:43 Toradol Injection - IM 03/29/20 13:42 Q6H PRN PAIN LEVEL 7 - 10 Morphine Sulfate 2 mg 03/24/20 05:00 03/24/20 08:00 Morphine Sulfate IVPUSH 2 mg Q4H PRN Administration PAIN LEVEL 7 - 10 Ondansetron HCl 4 mg 03/24/20 03:24 Zofran Injection IVPUSH Q6H PRN NAUSEA AND/OR VOMITING ASSESSMENT/PLAN: Bessy is a 39F with a pmhx of PCOS presenting with renal calculus in the L ureter #Renal calculus - CT of the abdomen and pelvis reveal - 4-5 mm renal calculus in the L ureter - L hydroureter - L proximal hydronephrosis - patient given morphine and ketoralac 30mg q6h IV - pain improving - Dr. Gian Trejo evaluated - laser ablation and JJ stent today #Pain - most likely cause of the elevated BP - morphine and ketorolac shows good improvement in pain - will monitor for further pain ATTENDING PHYSICIAN STATEMENT I saw and evaluated the patient. I reviewed the resident's note and discussed the case with the resident. I agree with the resident's findings and plan as documented. SUBJECTIVE: OBJECTIVE: ASSESSMENT AND PLAN:
--- NOTE | 2020-03-24 14:47 | PN ---
Teaching Attending Note Name of Resident: Peng Ahn ATTENDING PHYSICIAN STATEMENT I saw and evaluated the patient. I reviewed the resident's note and discussed the case with the resident. I agree with the resident's findings and plan as documented. SUBJECTIVE: Seen and examined at bedside. Patient still with discomfort but reports pain is improved since admission. Will go to the OR for left laser and JJ stent insertion today. OBJECTIVE: Last Vital Signs Temp Pulse Resp BP Pulse Ox 98.1 F 85 18 155/93 97 03/24/20 12:35 03/24/20 12:35 03/24/20 12:35 03/24/20 12:35 03/24/20 12:35 PE: per resident note labs/Imaging: reviewed ASSESSMENT AND PLAN: 39-year-old female history of PCO S presents with kidney stone with hydronephrosis #Left ureteral kidney stone with hydronephrosis Seen by urology, will go to the OR for left laser and JJ stent insertion today Pain control Fluids Strain urine N.p.o.
[2020-03-24 16:15] VITALS: BMI 37.4
[2020-03-24] MEDS ORDERED: LACTATED RINGERS SOLUTION 1,000 ML IV SCH (17:00)
[2020-03-24] MEDS ORDERED: MIDAZOLAM HCL 2 MG/2 ML SINGLE DOSE VIAL ONE (18:12)
[2020-03-24] MEDS ORDERED: SUCCINYLCHOLINE CHLORIDE 200 MG/10 ML SYRINGE ONE (18:18)
[2020-03-24] MEDS ORDERED: DESFLURANE GAS 240 ML BOTTLE IH ONE (18:21)
[2020-03-24] MEDS ORDERED: ceFAZolin SODIUM 1 GM VIAL IVPB ONE (18:48)
[2020-03-24] MEDS ORDERED: LIDOCAINE HCL/PF 2% SDV 5ML VIAL ONE (18:50)
[2020-03-24] MEDS ORDERED: ceFAZolin SODIUM 1 GM VIAL ONE (18:51)
[2020-03-24] MEDS ORDERED: DEXAMETHASONE SOD PHOSPHATE 4 MG/1 ML VIAL ONE (18:55)
[2020-03-24] MEDS ORDERED: PROPOFOL 20 ML ONE (18:55)
--- NOTE | 2020-03-24 19:22 | OP ---
Operative Note - Note: Operative Date: 03/24/20 Pre-Operative Diagnosis: lt. hydro, lt. ureteral stone Operation: lull with jj stent Post-Operative Diagnosis: Same as Pre-op Surgeon: Alex Fisher Specimens Removed: urine, renal stone Estimated Blood Loss (mls): 0 Drains & Tubes with Location: 22cm-6f lt. jj stent Drains, Volume Out (mls): 0 Blood Volume Replaced (mls): 0 Fluid Volume Replaced (mls): 0 Operative Report Dictated: Yes
[2020-03-24] MEDS: DEXTROSE 5%-0.45% SALINE 1,000 ML IV SCH (20:19)
[2020-03-24] MEDS ORDERED: guaiFENesin 200 MG/10 ML 10 ML UNIT-DOSE CUPS PO ONE (23:01)
--- NOTE | 2020-03-25 00:01 | PN ---
DATE OF VISIT: DATE OF DICTATION: 03/24/2020 PREOPERATIVE NOTE HISTORY OF PRESENT ILLNESS: The patient is a 39-year-old female with a 2-day history of left flank pain, colicky in nature, radiating to the left lower quadrant and left groin. She also had some frequency and dysuria. She does have a family history of stone disease. A CT scan performed yesterday in the emergency room revealed a 5-mm proximal left ureteral stone with left hydroureteronephrosis. Her white count is 8.8. Patient is in excruciating pain. There appears to be therefore will take to OR for cystoscopy, ureteroscopy, stone extraction, and placement of stent. This was explained to patient, and she agrees. JEROMY HERNANDEZ M.D. [id number]
[2020-03-25] MEDS: KETOROLAC TROMETHAMINE 30 MG/1 ML VIAL IM PRN ×2 (06:09→12:39)
[2020-03-25] MEDS: INSULIN SLIDING SCALE (NOVOLOG) 1 VIAL SQ SCH ×2 (06:21→12:13)
[2020-03-25 08:45] LABS: BASO % 0.3 % (0-2.0); HEMOGLOBIN 11.2 GM/dL (10.7-15.3); LYMPH % 18.7 % (8-40); MCH 29.5 pg (25.7-33.7); MEAN CELL VOLUME 86.7 fl (80-96); MEAN PLT VOLUME 7.9 fl (7.5-11.1); MONO % 4.7 % (3.8-10.2); NEUT % 76.3 % (42.8-82.8); PLATELET COUNT 258 K/MM3 (134-434); RBC 3.81 M/mm3 (3.60-5.2); RDW 14.5 % (11.6-15.6); WHITE BLOOD COUNT 7.1 K/mm3 (4.0-10.0)
[2020-03-25 09:18] LABS: ALBUMIN 3.2 g/dl (3.4-5.0); BILIRUBIN,TOTAL 0.6 mg/dL (0.2-1); BLOOD UREA NITROGEN 9.1 mg/dL (7-18); CALCIUM 8.5 mg/dL (8.5-10.1); CREATININE 0.7 mg/dL (0.55-1.3); MAGNESIUM 1.7 mg/dL (1.8-2.4); PHOSPHOROUS 3.6 mg/dL (2.5-4.9); POTASSIUM 3.7 mmol/L (3.5-5.1); TOT PROT 6.6 g/dl (6.4-8.2)
[2020-03-25] MEDS: DEXTROSE 5%-0.45% SALINE 1,000 ML IV SCH (10:13)
[2020-03-25 10:19] VITALS: BP 121/76; PULSE 90; TEMP 98.2
--- NOTE | 2020-03-25 13:24 | DS ---
Physical Examination Vital Signs: Vital Signs Temperature 98.2 F 03/25/20 10:18 Pulse Rate 90 03/25/20 10:18 Respiratory Rate 20 03/25/20 10:18 Blood Pressure 121/76 03/25/20 10:18 O2 Sat by Pulse Oximetry (%) 95 03/24/20 22:17 Labs: CBC, BMP 03/25/20 08:13 03/25/20 08:13 Discharge Summary Problems reviewed: Yes Reason For Visit: HYDRONEPHROSIS, CALCULUS OF LEFT KIDNEY Current Active Problems Abdominal pain (Acute) Kidney stone on left side (Acute) Hydronephrosis (Chronic) Hospital Course: 39-year-old female with a past medical history of PCOS presented with acute left-sided abdominal and flank pain and found to have obstructive calculus with left hydronephrosis and have to hydroureter. Patient underwent JJ stent insertion with removal of stone without complication. Following the CT procedure patient is hemodynamically stable and pain-free. Patient will follow- up with her urologist on Friday for further management. Condition: Good - Instructions Diet, Activity, Other Instructions: YOUR VISIT: You were admitted to the hospital for kidney stones found in your left ureter. While you were in the hospital we evaluated you with lab work, blood work, imaging including CT scan of your abdomen and pelvis. CT scan shows a fatty liver and a 5mm stone in the left ureter. You were treated with fluids, morphone, and ketorolac for your severe flank pain. You were evaluated by the urologist Dr. Trejo during your hospital course. Dr. Trejo examined you and brought you in for laser ablation of the kidney stone with a JJ stent. You will need to follow up with the urologist for further treatment. MEDICATION Please continue taking your home medications as prescribed FOLLOW UP: Please follow up with your urologist Dr. Gian Trejo within 1 week to monitor your kidney function Please follow up with your primary care doctor at [facility] within 1 week Additional instructions - You are being discharged home. - Please return to the EMERGENCY DEPARTMENT if you experience worsening pain, fevers, chills, shortness of breath, or chest pain, or if you experience any worsening, new or concerning symptoms. Referrals: Neil Springer, S.A. [Other Staff,non-medical] - 1 Week Disposition: HOME - Home Medications Comprehensive Discharge Medication List: Ambulatory Orders Icosapent Ethyl [Vascepa] 1 gm PO ASDIR 11/17/18 Metformin HCl [Glucophage] 1,000 mg PO BID 11/17/18 Naproxen [Naprosyn] 500 mg PO BID #6 tablet 11/17/18 Ibuprofen [Motrin -] 600 mg PO TID #21 tablet 03/23/20 Prescription Drug Monitoring Program (I-STOP) results: I-STOP not reviewed This patient is new to me today: No Emergency Visit: Yes ED Registration Date: 03/24/20 Care time: The patient presented to the Emergency Department on the above date and was hospitalized for further evaluation of their emergent condition. Critical Care patient: No - Discharge Referral Referred to [facility] No
--- NOTE | 2020-03-28 10:00 | PATH ---
Surgical Pathology Report Patient Name: NESSA HOPE Med. Rec. #: [id number] /Age/Gender: 1980 (Age: 39) / F Account: [id number] Location: EMERGENCY ROOM Taken: 03/24/2020 Received: 03/27/2020 Reported: 03/28/2020 Physicians: Any Esparza M.D. Specimen(s) Received URETERAL STONE, LEFT Clinical History Hydronephrosis, calculus of kidney Final Diagnosis URETERAL STONE, LEFT, STONE BASKETING: URETEROLITHIASIS. MACROSCOPIC DIAGNOSIS. Electronically Signed Angi Bergeron M.D. Gross Description Received fresh labeled "left ureteral stone," is a 0.8 cm in greatest dimension heredia, irregular calculus which is sent for chemical analysis. DL/03/27/2020 saudi/03/27/2020
--- NOTE | 2020-04-05 14:57 | OP ---
DATE OF OPERATION: 03/24/2020 PREOPERATIVE DIAGNOSIS: Left hydronephrosis. POSTOPERATIVE DIAGNOSIS: Left ureteral stone with proximal hydronephrosis. OPERATIVE PROCEDURE: Cystourethroscopy, left retrograde pyelogram, left ureteroscopy and stone manipulation, placement of a left double-J stent. ANESTHESIA: General. DESCRIPTION OF PROCEDURE: Under above-stated anesthesia, patient is prepped and draped in the usual sterile manner. She is placed in the dorsal lithotomy position. Cystoscopy revealed a normal bladder. Ureteral orifices were within normal limits. Efflux of clear urine was noted from the right. None was seen from the left. A left retrograde pyelogram was performed. This revealed a filling defect in the left midureter with proximal hydroureteronephrosis. Glidewire was passed up the right renal unit. Ureteroscopy was performed in the usual fashion. A stone was seen in the midureter. This was propelled cephalically due to hydrostatic pressure. Inspection of the renal pelvis revealed no evidence of stone, therefore the ureteroscope was removed. A 22-cm 6-[place] left double-J stent was left in place. X-rays confirmed good position of the stent. The bladder was emptied, scope was removed. Patient tolerated the procedure well. She returned to the recovery room in good condition. Any [id number]
[2020-04-11 09:12] LABS: CA OXALATE MONOHYDR. 10%; SIZE 7 x 3; WEIGHT 35
[2020-04-11 09:13] LABS: URIC ACID 40%
== END 2020-03-25 13:00 | disposition home or self-care (01) | DRG 661 ==
LOC: JER 22:04 → JERBED 03-24 03:19 → J6WEST-2 03-24 15:12
PROVIDERS: ADMIT Internal Medicine; ATTEND Internal Medicine
PROC: 0TC78ZZ Extirpation of Matter from Left Ureter, Via Natural or Artificial Opening Endoscopic (ICD-10-PCS; principal; 2020-03-24 16:30)
PROC: 0T778DZ Dilation of Left Ureter with Intraluminal Device, Via Natural or Artificial Opening Endoscopic (ICD-10-PCS; 2020-03-24 16:30)
PROC: BT1FZZZ Fluoroscopy of Left Kidney, Ureter and Bladder (ICD-10-PCS; 2020-03-24 16:30)
DX: N13.2 Hydronephrosis with renal and ureteral calculous obstruction (principal); R10.32 Left lower quadrant pain; E66.9 Obesity, unspecified; Z68.37 Body mass index [BMI] 37.0-37.9, adult
CPT/HCPCS: 36415; 71045-TC-FY; 74176-TC; 76000-TC-FY; 80053; 81003; 82360; 82962; 83690; 83735; 84100; 84703; 85025; 85610; 85730; 86850; 86900; 86901; 87086; 88300-TC; 93005; 93010; 94760; 99285-25; J0131; U0003